=== PATIENT | male | born 1940 | race African-American/Black ===

== ENCOUNTER 2017-11-24 09:40 | Day surgery (SDC) | payer OTHER, MEDICARE ==
[2017-11-21 10:49] VITALS: BMI 34.7
[2017-11-24] MEDS ORDERED: PROPOFOL 20 ML ONE ×2 (11:16)
[2017-11-25 10:04] VITALS: BP 130/70; PULSE 64; TEMP 97.9
== END 2017-11-24 12:50 | disposition home or self-care (01) ==
LOC: FASU-ENDO 09:40
PROVIDERS: ATTEND Internal Medicine Gastroenterology
PROC: 0DJD8ZZ Inspection of Lower Intestinal Tract, Via Natural or Artificial Opening Endoscopic (ICD-10-PCS; principal; 2017-11-24 12:00)
DX: Z86.010 Personal history of colon polyps (principal); K57.30 Diverticulosis of large intestine without perforation or abscess without bleeding